=== PATIENT | female | born 1960 | race Caucasian/White ===

== ENCOUNTER 2024-03-30 13:37 | Outpatient (AMB) | payer MEDICAID, SELFPAY ==
[2024-03-30 14:13] VITALS: BP 111/75; PULSE 84; RESP 18; TEMP 36.6; O2SAT 95; BMI 38.7
--- NOTE | 2024-03-30 14:13 | PD.ORTHCLVIS ---
Vital signs 03/30/24 14:13 Height 1.75 m Height Method Stated Weight 118.529 kg Weight Measurement Method Standing Scale BMI 38.7 BP 111/75 Blood Pressure Source Automatic Cuff Blood Pressure Location Right Upper Arm Position Sitting Respiration 18 Pulse 84 Pulse Source Monitor Temp 98 F Temp Source Temporal Artery Scan Pulse Oximetry (%) 95 Oxygen Delivery Method Room Air Med/Allergies Allergies & Medications Allergies BEES Allergy (Uncoded 03/30/24 14:14) Medication Reconciliation meloxicam 7.5 mg tablet 7.5 mg PO QDAY #45 tabs 12/06/23 [Rx Confirmed 03/30/24] prednisone 20 mg tablet 20 mg PO QDAY 03/30/24 [History Confirmed 03/30/24] Subjective Visit Visit for: follow up visit, hip and injections Immunization / Flu Flu Vaccine in the Last 12 Months: Yes Flu Vaccine Exclusion Criteria: Already Received History of Present Illness Chief complaint: REQ HIP INJECTION Patient is a 62-year-old female with a right total hip replacement. She is doing well. She reports that her right hip is perfect. She reports that she has significant left hip and groin pain. ThIs just started recently. SHe would like a left hip injection. Personal History Occupation: DISABLED Hobbies: NA Red flag PMH: none Pain Pain level (0-10): 8 Pain duration: ALL DAY Pain location: groin and outside (lateral) Pain quality: sharp Pain timing: increases with activity Associated signs & symptoms: stiffness Ambulatory data Ambulatory device: none Walking distance (blocks): 10 Treatments Number of previous injections: 0 Improvement with previous injections: Yes Number of Physical Therapy sessions: 0 Improvement with PT: No Improvement with NSAIDS: n/a Review of Systems Review of Systems: All systems negative unless otherwise noted in HPI. Exam Exam Patient is in no acute distress and is cooperative with the examination today. Patient has a normal mood and affect. Breathing is nonlabored. In no respiratory distress. Bilateral extremities were evaluated and demonstrates sensation intact to light touch. Palpable pedal pulses are present. No significant edema is present. Right hip incisions clean dry intact. She is no pain with logroll Right hip x-rays are from [facility]. This demonstrates total hip replacement good alignment position. Patient has moderate left hip arthritis as well. There is significant joint space narrowing and osteophytes Assessment and Plan Problem List (1) Status post total hip replacement, right: Status: Acute Plan: Patient is a pleasant 62-year-old female with a right total hip replacement anterolateral approach 12 months ago. She is doing well. She reports the pain is pretty much nonexistent and she is very happy with her progress She now has significant left hip pain. We discussed anti-inflammatories and injections. I will give her prescription for meloxicam. We Also have given her an order for a left hip cortisone injection. She can try PT as well. Office Procedures GNS Level of Care Nursing/Assessment Patient Status: Established Patient Nursing Assessment/Reassesment: Medication Reconciliation, Update PMH in EMR and Vital Signs Coordination of Care: Complex Care and Chronic Disease 1-5, Education Complex Pt/Fam, Consent,records obtained, informed consent, Results/Orders obtained and Staff clarify orders Established Patient Charge Established Patient Point Assignment: 95 Surgical Proc/IM SQ injection Major Surgical Procedure: Yes (HIP INJECTION ) Past Medical History Past Medical History Have you ever been diagnosed with any of the following: Cardiology Problems Hypertension: Yes Respiratory Problems Smoking: No Smoking Exposure: No Surgical History Total Hip Replacement: Yes
== END 2024-03-30 14:46 | disposition home or self-care (01) ==
PROVIDERS: Supervising Provider Orthopaedic Surgery Adult Reconstructive Orthopaedic Surgery; Visit Provider Orthopaedic Surgery Adult Reconstructive Orthopaedic Surgery
DX: Z96.641 Presence of right artificial hip joint (principal); M25.552 Pain in left hip; I10 Essential (primary) hypertension
CPT/HCPCS: 99213; G0463

== ENCOUNTER → 2024-04-17 | Outpatient (CLI) | payer MEDICAID, SELFPAY ==
--- NOTE | 2024-04-17 14:00 | XR_ITS ---
Examination: Steroid injection left hip joint with imaging guidance Fluoroscopy AP left hip single view. Exam date and time: April 17, 2024 1352 hours INDICATIONS: Left hip joint osteoarthritis left hip pain months Informed consent provided. Technique: A timeout was completed verifying correct patient, procedure, site, positioning. The patient was placed in supine position appropriate for the steroid injection The patient's site was prepped and draped in sterile fashion 5 cc 1% lidocaine administered locally for anesthesia. Sterile drape applied, maximum barrier sterile technique. Utilizing fluoroscopic guidance, 23-gauge needle placed in the left hip joint 1 cc triamcinolone in 5 cc 0.25% Marcaine introduced into the left hip joint The patient was in satisfactory and stable condition on completion of the procedure Attending radiologist was present for the entire procedure Estimated blood loss 0 cc. Impression: Successful steroid injection left hip joint with imaging guidance AP left hip single view Fluoroscopy 0.3 minute radiation dose 3.25 milligray 1 spot fluoroscopic film .
== END | disposition home or self-care (01) ==
LOC: SIRX 04-19 08:43
PROVIDERS: PCP Orthopaedic Surgery Adult Reconstructive Orthopaedic Surgery; Referring Provider Orthopaedic Surgery Adult Reconstructive Orthopaedic Surgery; Visit Provider Orthopaedic Surgery Adult Reconstructive Orthopaedic Surgery
DX: M16.12 Unilateral primary osteoarthritis, left hip (principal)
CPT/HCPCS: 20610; 77002

== ENCOUNTER 2024-09-25 12:56 | Outpatient (AMB) | payer MEDICAID, SELFPAY ==
[2024-09-25 13:12] VITALS: BP 120/81; PULSE 96; RESP 18; TEMP 35.5; O2SAT 95; BMI 36.8
--- NOTE | 2024-09-25 13:12 | ORTHONT_ITS ---
Vital signs 09/25/24 13:12 Height 1.75 m Height Method Stated Weight 112.661 kg Weight Measurement Method Standing Scale BMI 36.8 BP 120/81 Blood Pressure Source Automatic Cuff Blood Pressure Location Right Upper Arm Position Sitting Respiration 18 Pulse 96 Pulse Source Monitor Temp 96 F L Temp Source Temporal Artery Scan Pulse Oximetry (%) 95 Oxygen Delivery Method Room Air Med/Allergies Allergies & Medications Allergies BEES Allergy (Uncoded 09/25/24 13:17) Medication Reconciliation meloxicam 7.5 mg tablet 7.5 mg PO QDAY #45 tabs 12/06/23 [Rx Confirmed 09/25/24] prednisone 20 mg tablet 20 mg PO QDAY 03/30/24 [History Confirmed 09/25/24] Exam Exam Patient is in no acute distress and is cooperative with the examination today. Patient has a normal mood and affect. Breathing is nonlabored. In no respiratory distress. Bilateral extremities were evaluated and demonstrates sensation intact to light touch. Palpable pedal pulses are present. No significant edema is present. Right hip incisions clean dry intact. She is no pain with logroll Right hip x-rays are from [facility]. This demonstrates total hip replacement good alignment position. Patient has significant left hip arthritis as well. There is significant joint space narrowing and osteophytes Assessment and Plan Problem List (1) Status post total hip replacement, right: Status: Acute Plan: Patient is a pleasant 62-year-old female with a right total hip replacement anterolateral approach 24 months ago. She is doing well. She reports the pain is pretty much nonexistent and she is very happy with her progress She now has significant left hip pain. We discussed anti-inflammatories and injections. She has failed conservative treatment including injections, anti-inflammatories, and physical therapy. She would like to proceed with a total hip replacement on the left. I would like to get medical clearance. Office Procedures GNS Level of Care Nursing/Assessment Patient Status: Established Patient Nursing Assessment/Reassesment: Medication Reconciliation, Update PMH in EMR and Vital Signs Coordination of Care: Complex Care and Chronic Disease 1-5, Education Complex Pt/Fam, Consent,records obtained, informed consent, 2-3 Insurance Autorizations needed and Staff clarify orders Established Patient Charge Established Patient Point Assignment: 110 Established Patient Point Charge: EP Level 3 (80-115) [place] Intake Visit Data Collection New Patient or Established: Established Patient (seen at [facility] within 3 years) Reason for Visit:: LEFT HIP PAIN Seen by Clinical Staff ONLY (RN/MA): No Verbal consent obtained for Telemed visit?: No General Machinist Required: No PCP or OBGYN visit in last 3 months: Yes Hx Now: No Do You Feel Safe at Home: Yes Authorities Contacted: N/A Questionairres Past Medical History Past Medical History Have you ever been diagnosed with any of the following: Cardiology Problems Hypertension: Yes Respiratory Problems Smoking: No Smoking Exposure: No Surgical History Total Hip Replacement: Yes Subjective Visit Visit for: follow up visit and hip Immunization / Flu Flu Vaccine in the Last 12 Months: No Flu Vaccine Exclusion Criteria: No Exclusion Criteria History of Present Illness Chief complaint: Left hip pain Lety is a pleasant 64-year-old female with left hip pain. She is status post right total hip replacement. She reports the pain has increased. She we have now tried 2 injections on the left for her severe arthritis as well as anti- inflammatories and formal physical therapy. At this point in time, she reports the pain is affecting her quality life and she would like to pursue surgery Personal History Red flag PMH: BMI BMI Counceling provided: Yes Pain Pain level (0-10): 5 Pain location: groin Pain quality: sharp, dull and aching Pain timing: night and increases with activity Ambulatory data Ambulatory device: cane Treatments Improvement with previous injections: No Improvement with PT: No Improvement with NSAIDS: no Review of Systems Review of Systems: All systems negative unless otherwise noted in HPI.
--- NOTE | 2024-09-25 13:17 | XR_ITS ---
Examination: Bilateral hips, AP pelvis, 5 views Technique: AP, lateral views both hips, AP pelvis, 5 views Exam date and time: September 25, 2024 1341 hours INDICATIONS: Hip pain months FINDINGS: Significant osteopenia Total right hip arthroplasty with satisfactory alignment Advanced left hip osteoarthritis, severe narrowing hip joint Bones of the pelvis intact IMPRESSION: Severe left hip osteoarthritis
== END 2024-09-25 13:22 | disposition home or self-care (01) ==
LOC: HODSRG 12:56
PROVIDERS: Supervising Provider Orthopaedic Surgery Adult Reconstructive Orthopaedic Surgery; Visit Provider Orthopaedic Surgery Adult Reconstructive Orthopaedic Surgery
DX: Z96.641 Presence of right artificial hip joint (principal); M25.552 Pain in left hip; M16.12 Unilateral primary osteoarthritis, left hip; I10 Essential (primary) hypertension
CPT/HCPCS: 73522; 99213; G0463

== ENCOUNTER 2024-11-22 12:55 | Outpatient (AMB) | payer MEDICAID, SELFPAY ==
--- NOTE | 2024-11-22 13:35 | ORTHONT_ITS ---
Vital signs 11/22/24 13:36 Height 1.75 m Height Method Stated Weight 109.316 kg Weight Measurement Method Standing Scale BMI 35.6 BP 98/64 Blood Pressure Source Automatic Cuff Blood Pressure Location Left Upper Arm Position Sitting Respiration 16 Pulse 84 Pulse Source Monitor Temp 97.9 F Temp Source Temporal Artery Scan Pulse Oximetry (%) 95 Oxygen Delivery Method Room Air Med/Allergies Allergies & Medications Allergies BEES Allergy (Uncoded 11/22/24 13:36) Medication Reconciliation meloxicam 7.5 mg tablet 7.5 mg PO QDAY #45 tabs 12/06/23 [Rx Confirmed 11/22/24] prednisone 20 mg tablet 20 mg PO QDAY 03/30/24 [History Confirmed 11/22/24] Exam Exam Patient is in no acute distress and is cooperative with the examination today. Patient has a normal mood and affect. Breathing is nonlabored. In no respiratory distress. Bilateral extremities were evaluated and demonstrates sensation intact to light touch. Palpable pedal pulses are present. No significant edema is present. Right hip incisions clean dry intact. She is no pain with logroll Right hip x-rays are from [facility]. This demonstrates total hip r eplacement good alignment position. Patient has significant left hip arthritis as well. There is significant joint space narrowing and osteophytes Assessment and Plan Problem List (1) Status post total hip replacement, right: Status: Acute Plan: Patient is a pleasant 62-year-old female with a right total hip replacement anterolateral approach 24 months ago. She is doing well. She reports the pain is pretty much nonexistent and she is very happy with her progress She now has significant left hip pain. We discussed anti-inflammatories and injections. She has failed conservative treatment including injections, anti-inflammatories, and physical therapy. She would like to proceed with a total hip replacement on the left. The nature and purpose of the total hip replacement, alternative method(s) of treatment, the material risks involved, and the possibility of complications were fully explained to the patient. The patient does NOT have any of the following contraindications to BILL: - Active infection of the hip joint, OR - Active systemic bacteremia, OR - Active skin infection or open wound at surgical site, OR - Neuropathic arthritis, OR - Severe, rapidly progressive neurological disease, OR - Severe medical condition that makes risks of the surgery outweigh the potential benefit The patient was told the most common risks and complications associated with a total hip replacement include, but are not limited to: blood clots in the leg, fatal pulmonary embolism, dislocation of the prosthesis, intraoperative and postoperative fractures of the femur or acetabulum, infection, failure of the prosthesis or grafting materials, complications from anesthesia, reactions to blood transfusions, postoperative leg length inequality, instability of the hip replacement, nerve damage or injury, vascular injury, delayed wound healing, infection, other injury or even . In addition, there are risks associated with anesthesia given during this operation. Also, the patient was told that after undergoing a total hip replacement there may still be persistent pain or disability. The patient was informed that the success of this operation in part depends upon the mechanical devices which are going to be implanted and that these devices can fail or malfunction, and may need to be repaired or replaced and there are no guarantees as to the longevity of this device or its parts and that it or its parts could fail prematurely. The patient was also notified that during the course of surgery, there may be a need to use bone graft from donors, and that any bone graft used will be carefully screened for communicable diseases, including AIDS, hepatitis, Chris-Creutzfeldt, or other diseases, but despite the screening procedures, there is a small chance that they could contract one of these diseases. Finally, the patient was asked to follow completely and fully with all advice and recommended treatments, and that recovery and ultimate outcome are affected by their compliance with recommended treatment. We discussed the risks, benefits and treatment alternatives, and the patient is interested in proceeding with surgery. We will try to set this up as expeditiously as possible. Office Procedures GNS Level of Care Nursing/Assessment Patient Status: Established Patient Nursing Assessment/Reassesment: Medication Reconciliation, Update PMH in EMR and Vital Signs Coordination of Care: Complex Care and Chronic Disease 1-5, Education Complex Pt/Fam, Consent,records obtained, informed consent, Results/Orders obtained and Staff clarify orders Established Patient Charge Established Patient Point Assignment: 95 Established Patient Point Charge: Level 3 (80-115) [place] Intake Visit Data Collection New Patient or Established: Established Patient (seen at [facility] within 3 years) Reason for Visit:: LEFT HIP PAIN Seen by Clinical Staff ONLY (RN/MA): No Verbal consent obtained for Telemed visit?: No Blue Line Trimmer Required: No PCP or OBGYN visit in last 3 months: Yes Hx Now: No Do You Feel Safe at Home: Yes Authorities Contacted: N/A Questionairres Past Medical History Past Medical History Have you ever been diagnosed with any of the following: Cardiology Problems Hypertension: Yes Respiratory Problems Smoking: No Smoking Exposure: No Surgical History Total Hip Replacement: Yes Subjective Visit Visit for: follow up visit and hip Immunization / Flu Flu Vaccine in the Last 12 Months: No Flu Vaccine Exclusion Criteria: No Exclusion Criteria History of Present Illness Chief complaint: Left hip pain Lety is a pleasant 64-year-old female with left hip pain. She is status post right total hip replacement. She reports the pain has increased. She we have now tried 2 injections on the left for her severe arthritis as well as anti- inflammatories and formal physical therapy. At this point in time, she reports the pain is affecting her quality life and she would like to pursue surgery. She reports the left hip pain is miserable Personal History Red flag PMH: BMI BMI Counceling provided: Yes Pain Pain level (0-10): 5 Pain location: groin Pain quality: sharp, dull and aching Pain timing: night and increases with activity Ambulatory data Ambulatory device: cane Treatments Improvement with previous injections: No Improvement with PT: No Improvement with NSAIDS: no Review of Systems Review of Systems: All systems negative unless otherwise noted in HPI.
[2024-11-22 13:36] VITALS: BP 98/64; PULSE 84; RESP 16; TEMP 36.6; O2SAT 95; BMI 35.6
== END 2024-11-22 14:01 | disposition home or self-care (01) ==
LOC: HODSRG 12:55
PROVIDERS: Supervising Provider Orthopaedic Surgery Adult Reconstructive Orthopaedic Surgery; Visit Provider Orthopaedic Surgery Adult Reconstructive Orthopaedic Surgery
DX: M25.552 Pain in left hip (principal); Z96.641 Presence of right artificial hip joint; I10 Essential (primary) hypertension
CPT/HCPCS: 99213; G0463

== ENCOUNTER → 2024-12-10 | Outpatient (CLI) | payer OTHER, SELFPAY ==
--- NOTE | 2024-12-10 10:30 | XR_ITS ---
Examination: CT bilateral lower extremities, without contrast. 2-D sagittal reconstructions. 2-D coronal reconstructions. 3-D reconstructions. Date and time of exam:December 10, 2024 1038 hours INDICATIONS: Bilateral hip pain 2 years CTDI: vol (mGy):24.9 DLP: (mGycm):1370 Technique: Multiple 1.25 mm axial sections of the bilateral lower extremities without intravenous contrast have been obtained. 2-D sagittal and coronal reconstructions have been obtained. 3-D reconstructions have been obtained. Low dose protocols were performed. One or more of the following dose reduction techniques were used; automated exposure control, adjustment of the mA and/or KV according to patient size, use of iterative reconstruction technique. 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
== END | disposition home or self-care (01) ==
LOC: SCAT 12-12 08:25
PROVIDERS: Referring Provider Orthopaedic Surgery Adult Reconstructive Orthopaedic Surgery; Visit Provider Orthopaedic Surgery Adult Reconstructive Orthopaedic Surgery
DX: M16.12 Unilateral primary osteoarthritis, left hip (principal); M25.852 Other specified joint disorders, left hip
CPT/HCPCS: 72192; 73700

== ENCOUNTER 2024-12-14 05:45 | Day surgery (SDC) | payer OTHER, SELFPAY ==
[2024-12-10 09:28] VITALS: BMI 36.3
[2024-12-10 10:13] LABS: Basophils # (Auto) 0.0 Thou/mm3 (0.0-0.2); Basophils % (Auto) 1 % (0-2.5); Eosinophils # (Auto) 0.2 Thou/mm3 (0.0-0.5); Eosinophils % (Auto) 3 % (0-10); Hematocrit 42.1 % (36.0-46.0); Hemoglobin 14.3 g/dL (12.0-16.0); Immature Granulocytes Auto 0.02 Thou/mm3 (0.00-0.00); Lymphocytes # (Auto) 1.4 Thou/mm3 (1.0-4.8); Lymphocytes % (Auto) 24 % (10-50); Mean Corpuscular HGB Conc 34.0 g/dl (31.0-37.0); Mean Corpuscular Hemoglobin 30.0 pg (25.0-35.0); Mean Corpuscular Volume 88 fL (80-100); Monocytes # (Auto) 0.5 Thou/mm3 (0.0-0.8); Monocytes % (Auto) 7 % (0-12); Neutrophils # (Auto) 4.0 Thou/mm3 (1.8-7.7); Neutrophils % (Auto) 65 % (37-80); Nucleated Red Blood Cell # 0.00 Thou/mm3 (0.00-0.00); Nucleated Red Blood Cell % 0 /100 WBC (0); Platelet Count 423 Thou/mm3 (140-440); RDW Standard Deviation 41.1 fL (36.4-46.3); Red Blood Count 4.76 Miln/mm3 (4.00-5.20); White Blood Count 6.1 Thou/mm3 (3.6-11.0)
[2024-12-10 10:21] LABS: INR 1.0 (0.9-1.3); Partial Thromboplastin Time 27.5 Seconds (22.0-36.0); Prothrombin Time 10.8 Seconds (9.0-12.2)
[2024-12-10 10:29] LABS: Alanine Aminotransferase 10 U/L (10-49); Albumin, Serum 4.5 gm/dL (3.4-4.8); Albumin/Globulin Ratio 1.9 (1.2-2.2); Alkaline Phosphatase 80 U/L (46-116); Anion Gap 9 (7-16); Aspartate Amino Transferase 17 U/L (0-34); BUN/Creatinine Ratio 11 Ratio (12-20); Bilirubin,Total 0.6 mg/dL (0.3-1.2); Blood Urea Nitrogen 11 mg/dL (9-23); Calcium 9.9 mg/dL (8.3-10.6); Calcium (Corrected) 9.9 mg/dL (8.5-10.1); Carbon Dioxide 28.9 mMol/L (20.0-31.0); Chloride 98 mMol/L (98-107); Creatinine (Component) 1.0 mg/dL (0.6-1.3); Estimated Creatinine Clearance 73.4 mL/min (>60); Globulin 2.4 gm/dL (2.3-3.5); Glucose 95 mg/dL (74-106); Osmolality,Calculated 271 (275-295); Potassium 4.4 mMol/L (3.4-5.1); Sodium 136 mMol/L (136-145); Total Protein 6.9 gm/dL (5.7-8.2); eGFR > 60 See Note
--- NOTE | 2024-12-13 15:51 | SUR.PREOP ---
Pt notified to come in tomorrow at 0545 for surgery.
[2024-12-14] VITALS (16 sets, daily range): BP systolic 78–122; BP diastolic 53–77; PULSE 68–88; RESP 13–20; TEMP 36.2–36.9; O2SAT 95–99; BMI 36.1
[2024-12-14] MEDS: ACETAMINOPHEN 325 MG TABLET 650 MG PO (06:27)
[2024-12-14] MEDS: MELOXICAM 7.5 MG TABLET PO (06:27)
[2024-12-14] MEDS: RINGERS LACTATED 1000 ML 1,000 ML 20 ML IV (06:28)
--- NOTE | 2024-12-14 07:22 | SUR.PREOP ---
Patient expressed gratitude for prayer before their procedure.
--- NOTE | 2024-12-14 08:00 | XR_ITS ---
Examination: Left hip single view TECHNIQUE: AP left hip single view Date and time: December 24, 2024 0936 hours INDICATIONS: Status post total left hip arthroplasty FINDINGS: Total left hip arthroplasty. Satisfactory alignment IMPRESSION: Total left hip arthroplasty with satisfactory alignment
--- NOTE | 2024-12-14 10:06 | PD.SUROPNT ---
Date of Procedure 12/14/24 Pre Op Diagnosis left hip osteoarthritis Post Op Diagnosis left hip osteoarthritis Procedure left total hip replacement tae Findings full thickness cartilage loss and osteophytes Procedure Description Indications: The patient is a 64y.o. year-old with a longstanding history of left hip pain. After considering the patient's condition and the impact of their hip injury on the patient's quality of life and risks of nonoperative treatment, total hip replacement was offered as a reasonable option. Prior to the surgery I discussed the nature of the hip replacement surgery including alternatives to surgery and the purpose of, and indications for proceeding with surgery. I discussed that this surgery is a shared decision between the patient and the surgeon. Risks and benefits and alternatives of the procedure have been explained to the patient and their family. Anesthesia complications and risks include but are not limited to stroke, heart attack, and . The surgical risks include but are not limited to infection, instability/dislocation, bleeding, nerve and blood vessel injury, deep vein thrombosis, pulmonary embolus, stiffness, pain, scar, need for reoperation, leg length discrepancy, thigh numbness, weakness, and mechanical failure of the implant including loosening, metal complications, metal allergy, wear or breakage. I discussed the expected recovery from surgery and the importance of compliance with all our pre and post-operative recommendations in order to maximize the recovery. The patient/family understands the risks of loss of life, loss of limb and, loss of function and wishes to proceed. They understand they are at increased risk for infection given their history of smoking. A signed and witnessed consent was obtained and placed in the chart. Patient Positioning: The patient was placed in the lateral decubitus position on a standard table using a pegboard. An axillary role was placed. All extremities were padded to ensure adequate protection. A rebolledo catheter was aseptically inserted. Time Out: A timeout was performed prior to the procedure which verified the correct patient, positioning, operation to be performed, operative site, antibiotics, allergies, imaging, and any other concerns. All parties were in agreement. Procedure in detail: The operative site was cleaned and draped in the usual sterile fashion. A final timeout was performed with all parties in agreement. We first placed percutaneous reno pins above the ASIS and attached a hip array. A modified anterolateral approach to the hip was utilized. A 16cm skin incision was made centered over the greater trochanter in line with the femur. This was taken down through skin and subcutaneous tissue using a 10 blade. Bleeding was controlled using electrocautery. The fascia was identified and split in line with the femur. The charnley retractor was then placed. The abductor insertion was identified and a split made in the anterior 1/3 of the tendon proximally. Retractors were placed and the gluteus minimus was visualized. A capsulotomy was made down to the femoral neck anterior to the minimus. A split was then made in the anterior 1/3 of the vastus lateralis. A retractor was then placed anterior to the femoral shaft, the tendon was tagged with #1 ethibond sutures and a U-shaped split was made in the anterior 1/3 of the abductor tendon being careful to leave enough tendon to re-attach. The hip was then gently externally rotated as the anterior tissues were taken down with the tendon and capsule as one sleeve. Once the anterior tissue had been release off of bone a bone hook was placed and the hip was gently dislocated. Retractors were placed around the femoral neck and the femoral neck osteotomy was then made to freshen up the cut. The femoral head removed. The leg was then placed in extension and retractors were placed anterior and posterior to the acetabulum. We first mapped the acetabulum and pelvis with a probe. The inferior capsule was release to improved visualization and the labrum and osteophytes around the acetabulum were removed. The acetabulum was then reamed to bleeding bone with adequate wall coverage and the cup was impacted into place using the [employer] robot. Screws were then placed followed by the liner which was impacted and confirmed to be seated. We then turned our attention to the femur. The leg was brought into external rotation and the femur was exposed. A canal finder was used followed by a box osteotomy and the femur was broached sequentially. The trial stem was then left in and the hip was trialed using various neck offsets and head sizes until the appropriate size was found based on leg length, stability. Once we were satisfied with the construct a cross-table AP pelvis radiograph was obtained to confirm appropriate positioning and sizing. The hip was then dislocated and the trials were then removed and the final stem impacted into placed. The hip was then again trialed and the appropriate head size identified. The garcia taper was then cleaned and dried and the final head impact into place and tested. The acetabulum was irrigated and confirmed to be free of debris. The hip was then reduced and taken through range of motion. The hip was stable in abduction and external rotation, adduction and external rotation, flexion past 90 degrees and internal rotation past 20 degrees. It did not sublux throughout range of motion and no impingement was detected. Leg lengths were appropriately restored based on preoperative leg lengths and intraoperative testing. Lengths and offset were further verified with the robot. We then removed the pins and the greater troch marker. The hip was then copiously irrigated with dilute betadine followed by normal saline. The hip was then injected with the cocktail per protocol The hip was the closed in layers. The abductor tendon was closed with #1 ethibond. The fascia was closed with 0 Vicryl followed by an 0 V-lock. . The deep layer was closed with 0-Vicryl and the subcutaneous layer by a 2-0 Vicryl. The subdermal layer was closed with a 3-0 monocryl. The skin was then cleaned and dried and steri-strips placed followed by a sterile dressing. The drapes were then taken down and the patient was placed supine. Leg lengths were confirmed to be appropriate and the patient's lower extremities were warm and well perfused with brisk capillary refill and palpable pulses. The patient was then awoken, transferred to the [facility] and taken to the PACU in stable condition. They tolerated the procedure well. The patient's family/caregiviers were made aware of their condition. Postoperative plan Activity: WBAT, no hip precautions , no active hip abduction DVT Prophylaxis: aspirin 81mg BID Antibiotics: Standard postoperative antibiotics x 24 hours Implants: Juma 52 cup, 5 standard insignia, 1 screws, standard liner, 40-2.5 head Anesthesia spinal Implants juma Pathology / specimen None Pathology comment: none Estimated Blood Loss 150 Condition Stable Disposition same day Surgeon Rajesh Alfonso MD Surgical Staff Operation Date: 12/14/24 07:30 Case Staff Anesthesiologist: Dariel Mccabe RN First Assistant: Denise Gilliam
--- NOTE | 2024-12-14 10:16 | SUR.PHASEI ---
pt received from OR in recovery bay 5. pt awake and alert, breathing unlabored on 8l oxymask. v/s stable. pt dressing to left hip cdi. report received from Gena Beth and Dr. Mccabe.
--- NOTE | 2024-12-14 10:48 | XR_ITS ---
Examination:Left hip AP, lateral, AP pelvis 3 views Technique: Hip AP lateral, AP pelvis, 3 views Exam date and time:December 24, 2024 1048 hours INDICATIONS: Postop left hip arthroplasty FINDINGS: Total left hip arthroplasty. Satisfactory alignment. Total right hip arthroplasty with satisfactory alignment. Bones of the pelvis intact IMPRESSION: Total left hip arthroplasty with satisfactory alignment.
--- NOTE | 2024-12-14 12:30 | SUR.PHASEII ---
pt awake, alert, able to follow commands, breathing unlabored, dressing to left hip clean, dry, and intact, report from Danny BOLTON
--- NOTE | 2024-12-14 13:02 | SUR.PHASEII ---
Report to Danny BOLTON
--- NOTE | 2024-12-14 14:00 | SUR.PHASEII ---
pt awake and alert, breathing unlabored on room air. v/s stable. pt dressing to left hip cdi. pt cleared by physical therapist Argenis. pt able to ambulate to bathroom using walker. d/c instructions given with sister Gail in room, all questions answered. pt d/c via wheelchair with all belongings.
== END 2024-12-14 14:00 | disposition home or self-care (01) ==
PROVIDERS: Anesthesiology; Referring Provider Orthopaedic Surgery Adult Reconstructive Orthopaedic Surgery; Visit Provider Orthopaedic Surgery Adult Reconstructive Orthopaedic Surgery
PROC: (CPT 27130; principal; 2024-12-14 07:30)
DX: M16.12 Unilateral primary osteoarthritis, left hip (principal); M25.752 Osteophyte, left hip
CPT/HCPCS: 27130; 36415; 73501; 73502; 80053; 85025; 85610; 85730; 97162; A4217; A4649; C1713; C1776; J0690; J1885; J2250; J2405; J2704; J3010; J3490; J7030; J7120; J7999; A4648; A9270

== ENCOUNTER 2024-12-28 09:27 | Outpatient (AMB) | payer OTHER, SELFPAY ==
--- NOTE | 2024-12-28 09:51 | ORTHONT_ITS ---
Vital signs 12/28/24 09:52 Height 1.73 m Height Method Stated Weight 110.024 kg Weight Measurement Method Standing Scale BMI 36.7 BP 118/78 Blood Pressure Source Automatic Cuff Blood Pressure Location Left Upper Arm Position Sitting Respiration 18 Pulse 98 Pulse Source Monitor Temp 96.6 F L Temp Source Temporal Artery Scan Pulse Oximetry (%) 98 Oxygen Delivery Method Room Air Med/Allergies Allergies & Medications Allergies tetracycline Allergy (Verified 12/28/24 09:52) Rash BEES Allergy (Uncoded 12/28/24 09:52) Medication Reconciliation albuterol sulfate 90 mcg/actuation aerosol inhaler 1 puff inhalation Q4H PRN shortness of breath or wheezing 12/10/24 [History Confirmed 12/28/24] budesonide-formoterol HFA 160 mcg-4.5 mcg/actuation aerosol inhaler (Symbicort) 1 inh inhalation BID 12/10/24 [History Confirmed 12/28/24] cetirizine 10 mg tablet 10 mg PO DAILY 12/10/24 [History Confirmed 12/28/24] ergocalciferol (vitamin D2) 1,250 mcg (50,000 unit) capsule 1,250 mcg PO QMONTH 12/10/24 [History Confirmed 12/28/24] fluoxetine 40 mg capsule 40 mg PO DAILY 12/10/24 [History Confirmed 12/28/24] fluticasone propionate 50 mcg/actuation nasal spray,suspension 1 spray intranasal Q12H PRN nasal congestion 12/10/24 [History Confirmed 12/28/24] furosemide 20 mg tablet 20 mg PO DAILY 12/10/24 [History Confirmed 12/28/24] gabapentin 300 mg capsule 300 mg PO BID 12/10/24 [History Confirmed 12/28/24] ipratropium 0.5 mg-albuterol 3 mg (2.5 mg base)/3 mL nebulization soln 3 ml inhalation Q4H PRN wheezing 12/10/24 [History Confirmed 12/28/24] lisinopril 5 mg tablet 5 mg PO DAILY 12/10/24 [History Confirmed 12/28/24] meloxicam 7.5 mg tablet 7.5 mg PO QDAY PRN muscle spasm 12/10/24 [History Confirmed 12/28/24] montelukast 10 mg tablet 10 mg PO HS 12/10/24 [History Confirmed 12/28/24] omeprazole 20 mg capsule,delayed release 20 mg PO DAILY 12/10/24 [History Confirmed 12/28/24] semaglutide (weight loss) 1 mg/0.5 mL subcutaneous pen injector (Wegovy) 1 mg subcut QWEEK 12/10/24 [History Confirmed 12/28/24] tezepelumab-ekko 210 mg/1.91 mL (110 mg/mL) subcutaneous pen injector (Tezspire) 210 mg subcut QMONTH 12/10/24 [History Confirmed 12/28/24] acetaminophen 500 mg tablet (Acetaminophen Extra Strength) 1,000 mg (2 x 500 mg) PO Q6H PRN pain #90 tabs 12/11/24 [Rx Confirmed 12/28/24] aspirin 81 mg tablet,delayed release 81 mg PO BID #60 tabs 12/11/24 [Rx Confirmed 12/28/24] doxycycline hyclate 100 mg tablet 100 mg PO BID #14 tabs 12/11/24 [Rx Confirmed 12/28/24] gabapentin 300 mg capsule 300 mg PO .qhs #30 caps 12/11/24 [Rx Confirmed 12/28/24] oxycodone 5 mg tablet 5 mg PO Q6H PRN pain #28 tabs 12/11/24 [Rx Confirmed 12/28/24] sennosides 8.6 mg-docusate sodium 50 mg tablet (Senna-S) 1 tab-cap PO QDAY #30 tabs 12/11/24 [Rx Confirmed 12/28/24] Exam Exam Patient is in no acute distress and is cooperative with the examination today. Patient has a normal mood and affect. Breathing is nonlabored. In no respiratory distress. Bilateral extremities were evaluated and demonstrates sensation intact to light touch. Palpable pedal pulses are present. No significant edema is present. Right hip incisions clean dry intact. She is no pain with logroll Left hip incision is also clean dry intact Assessment and Plan Problem List (1) Status post total hip replacement, right: Status: Acute Plan: Patient is a pleasant 62-year-old female with a right total hip replacement anterolateral approach 24 months ago. She is doing well. She is now status post left total hip replacement and is very happy. We will have her do physical therapy Office Procedures GNS Level of Care Nursing/Assessment Patient Status: Established Patient Nursing Assessment/Reassesment: Medication Reconciliation, Update PMH in EMR and Vital Signs Coordination of Care: Complex Care and Chronic Disease 1-5, Education Complex Pt/Fam, Consent,records obtained, informed consent, Results/Orders obtained and Staff clarify orders Established Patient Charge Established Patient Point Assignment: 95 Established Patient Point Charge: EP Level 3 (80-115) MA Intake Visit Data Collection New Patient or Established: Established Patient (seen at [facility] within 3 years) Reason for Visit:: 2 WEEK L BILL FU Seen by Clinical Staff ONLY (RN/MA): No Verbal consent obtained for Telemed visit?: No [employer] Required: No PCP or OBGYN visit in last 3 months: Yes Hx Now: No Do You Feel Safe at Home: Yes Authorities Contacted: N/A Questionairres Past Medical History Past Medical History Have you ever been diagnosed with any of the following: Neurological Problems Seizures: No Cardiology Problems Congestive Heart Failure: No Hypertension: Yes Respiratory Problems Chronic Obstructive Pulmonary Disease (COPD): No Asthma: Yes Smoking: No Smoking Exposure: No Stomache/Intestinal Problems Hepatitis: No Obesity: Yes Genital/Urinary Problems Renal Disease: No Reproductive Problems Previous Pregnancies: Yes (3) Musculoskeletal Problems Arthritis: Yes Degenerative Disk Disease: Yes Endocrine Problems Diabetes Mellitus Type 1: No Diabetes Mellitus Type 2: No Other Problems Hospitalization: Yes Shingles: No Blood Transfusions: No Anesthesia Reactions: Yes (wakes up earlier then expected) Chicken Pox: Yes Mumps: Yes Cancer: No Surgical History Total Hip Replacement: Yes Subjective Visit Visit for: follow up visit, post op #1 and hip Immunization / Flu Flu Vaccine in the Last 12 Months: No Flu Vaccine Exclusion Criteria: No Exclusion Criteria History of Present Illness Chief complaint: Left hip pain Lety is a pleasant 64-year-old female with left hip pain. She is status post right total hip replacement. She is now status post left total hip replacement and is very happy with her progress. Personal History Red flag PMH: BMI BMI Counceling provided: Yes Pain Pain level (0-10): 0 Pain location: groin Pain quality: sharp, dull and aching Pain timing: night and increases with activity Ambulatory data Ambulatory device: walker Treatments Improvement with previous injections: No Improvement with PT: No Improvement with NSAIDS: no Review of Systems Review of Systems: All systems negative unless otherwise noted in HPI.
[2024-12-28 09:52] VITALS: BP 118/78; PULSE 98; RESP 18; TEMP 35.9; O2SAT 98; BMI 36.7
== END 2024-12-28 10:10 | disposition home or self-care (01) ==
LOC: HODSRG 09:27
PROVIDERS: Supervising Provider Orthopaedic Surgery Adult Reconstructive Orthopaedic Surgery; Visit Provider Orthopaedic Surgery Adult Reconstructive Orthopaedic Surgery
DX: Z96.641 Presence of right artificial hip joint (principal); M25.552 Pain in left hip
CPT/HCPCS: 99213; G0463

== ENCOUNTER 2025-02-05 09:02 | Outpatient (AMB) | payer OTHER, SELFPAY ==
[2025-02-05 09:21] VITALS: BP 113/76; PULSE 90; RESP 20; TEMP 36.3; O2SAT 94; BMI 35.5
--- NOTE | 2025-02-05 09:21 | PD.ORTHCLVIS ---
Vital signs 02/05/25 09:21 Height 1.73 m Height Method Measured Weight 106.282 kg Weight Measurement Method Standing Scale BMI 35.5 BP 113/76 Blood Pressure Source Automatic Cuff Blood Pressure Location Left Upper Arm Position Sitting Respiration 20 Pulse 90 Pulse Source Monitor Temp 97.4 F Temp Source Temporal Artery Scan Pulse Oximetry (%) 94 L Oxygen Delivery Method Room Air Med/Allergies Allergies & Medications Allergies tetracycline Allergy (Verified 02/05/25 09:22) Rash BEES Allergy (Uncoded 02/05/25 09:22) Medication Reconciliation albuterol sulfate 90 mcg/actuation aerosol inhaler 1 puff inhalation Q4H PRN shortness of breath or wheezing 12/10/24 [History Confirmed 02/05/25] budesonide-formoterol HFA 160 mcg-4.5 mcg/actuation aerosol inhaler (Symbicort) 1 inh inhalation BID 12/10/24 [History Confirmed 02/05/25] cetirizine 10 mg tablet 10 mg PO DAILY 12/10/24 [History Confirmed 02/05/25] ergocalciferol (vitamin D2) 1,250 mcg (50,000 unit) capsule 1,250 mcg PO QMONTH 12/10/24 [History Confirmed 02/05/25] fluoxetine 40 mg capsule 40 mg PO DAILY 12/10/24 [History Confirmed 02/05/25] fluticasone propionate 50 mcg/actuation nasal spray,suspension 1 spray intranasal Q12H PRN nasal congestion 12/10/24 [History Confirmed 02/05/25] furosemide 20 mg tablet 20 mg PO DAILY 12/10/24 [History Confirmed 02/05/25] gabapentin 300 mg capsule 300 mg PO BID 12/10/24 [History Confirmed 02/05/25] ipratropium 0.5 mg-albuterol 3 mg (2.5 mg base)/3 mL nebulization soln 3 ml inhalation Q4H PRN wheezing 12/10/24 [History Confirmed 02/05/25] lisinopril 5 mg tablet 5 mg PO DAILY 12/10/24 [History Confirmed 02/05/25] meloxicam 7.5 mg tablet 7.5 mg PO QDAY PRN muscle spasm 12/10/24 [History Confirmed 02/05/25] montelukast 10 mg tablet 10 mg PO HS 12/10/24 [History Confirmed 02/05/25] omeprazole 20 mg capsule,delayed release 20 mg PO DAILY 12/10/24 [History Confirmed 02/05/25] semaglutide (weight loss) 1 mg/0.5 mL subcutaneous pen injector (Wegovy) 1 mg subcut QWEEK 12/10/24 [History Confirmed 02/05/25] tezepelumab-ekko 210 mg/1.91 mL (110 mg/mL) subcutaneous pen injector (Tezspire) 210 mg subcut QMONTH 12/10/24 [History Confirmed 02/05/25] acetaminophen 500 mg tablet (Acetaminophen Extra Strength) 1,000 mg (2 x 500 mg) PO Q6H PRN pain #90 tabs 12/11/24 [Rx Confirmed 02/05/25] aspirin 81 mg tablet,delayed release 81 mg PO BID #60 tabs 12/11/24 [Rx Confirmed 02/05/25] doxycycline hyclate 100 mg tablet 100 mg PO BID #14 tabs 12/11/24 [Rx Confirmed 02/05/25] gabapentin 300 mg capsule 300 mg PO .qhs #30 caps 12/11/24 [Rx Confirmed 02/05/25] oxycodone 5 mg tablet 5 mg PO Q6H PRN pain #28 tabs 12/11/24 [Rx Confirmed 02/05/25] sennosides 8.6 mg-docusate sodium 50 mg tablet (Senna-S) 1 tab-cap PO QDAY #30 tabs 12/11/24 [Rx Confirmed 02/05/25] Exam Exam Patient is in no acute distress and is cooperative with the examination today. Patient has a normal mood and affect. Breathing is nonlabored. In no respiratory distress. Bilateral extremities were evaluated and demonstrates sensation intact to light touch. Palpable pedal pulses are present. No significant edema is present. Right hip incisions clean dry intact. She is no pain with logroll Left hip incision is also clean dry intact Assessment and Plan Problem List (1) Status post total hip replacement, right: Status: Acute Plan: Patient is a pleasant 62-year-old female with a right total hip replacement anterolateral approach 24 months ago. She is doing well. She is now status post left total hip replacement and is very happy. She is doing well with physical therapy. we will see her back in 2 months routine follow-up Office Procedures GNS Level of Care Nursing/Assessment Patient Status: Established Patient Nursing Assessment/Reassesment: Medication Reconciliation, Update PMH in EMR and Vital Signs Coordination of Care: Complex Care and Chronic Disease 1-5, Education Complex Pt/Fam, Consent,records obtained, informed consent, Results/Orders obtained and Staff clarify orders Established Patient Charge Established Patient Point Assignment: 95 Established Patient Point Charge: EP Level 3 (80-115) MA Intake Visit Data Collection New Patient or Established: Established Patient (seen at [facility] within 3 years) Reason for Visit:: 4 WEEK POST OP LEFT BILL Seen by Clinical Staff ONLY (RN/MA): No Verbal consent obtained for Telemed visit?: No Hoof Trimmer Required: No PCP or OBGYN visit in last 3 months: Yes Hx Now: No Do You Feel Safe at Home: Yes Authorities Contacted: N/A Questionairres Past Medical History Past Medical History Have you ever been diagnosed with any of the following: Neurological Problems Seizures: No Cardiology Problems Congestive Heart Failure: No Hypertension: Yes Respiratory Problems Chronic Obstructive Pulmonary Disease (COPD): No Asthma: Yes Smoking: No Smoking Exposure: No Stomache/Intestinal Problems Hepatitis: No Obesity: Yes Genital/Urinary Problems Renal Disease: No Reproductive Problems Previous Pregnancies: Yes (3) Musculoskeletal Problems Arthritis: Yes Degenerative Disk Disease: Yes Endocrine Problems Diabetes Mellitus Type 1: No Diabetes Mellitus Type 2: No Other Problems Hospitalization: Yes Shingles: No Blood Transfusions: No Anesthesia Reactions: Yes (wakes up earlier then expected) Chicken Pox: Yes Mumps: Yes Cancer: No Surgical History Total Hip Replacement: Yes Subjective Visit Visit for: follow up visit and hip Immunization / Flu Flu Vaccine in the Last 12 Months: No Flu Vaccine Exclusion Criteria: No Exclusion Criteria History of Present Illness Chief complaint: 4 WEEK POST OP LEFT BILL Lety is a pleasant 64-year-old female with left hip pain. She is status post right total hip replacement. She is now status post left total hip replacement and is very happy with her progress. She reports her bilateral knees are starting to hurt her somewhat she has not had any x-rays of her knees. Personal History Red flag PMH: BMI BMI Counceling provided: Yes Pain Pain level (0-10): 0 Pain location: groin Pain quality: sharp, dull and aching Pain timing: night and increases with activity Ambulatory data Ambulatory device: cane [employer] Improvement with previous injections: No Improvement with PT: No Improvement with NSAIDS: no Review of Systems Review of Systems: All systems negative unless otherwise noted in HPI.
== END 2025-02-05 09:38 | disposition home or self-care (01) ==
LOC: HODSRG 09:02
PROVIDERS: Supervising Provider Orthopaedic Surgery Adult Reconstructive Orthopaedic Surgery; Visit Provider Orthopaedic Surgery Adult Reconstructive Orthopaedic Surgery
DX: Z96.642 Presence of left artificial hip joint (principal); M25.552 Pain in left hip; I10 Essential (primary) hypertension; E66.9 Obesity, unspecified; Z68.35 Body mass index [BMI] 35.0-35.9, adult
CPT/HCPCS: 99213; G0463

== ENCOUNTER 2025-04-02 12:52 | Outpatient (AMB) | payer OTHER, SELFPAY ==
[2025-04-02 13:15] VITALS: BP 106/75; PULSE 79; RESP 18; TEMP 36.6; O2SAT 93; BMI 35.2
--- NOTE | 2025-04-02 13:15 | PD.ORTHCLVIS ---
Vital signs 04/02/25 13:15 Height 1.73 m Height Method Stated Weight 105.29 kg Weight Measurement Method Standing Scale BMI 35.2 BP 106/75 Blood Pressure Source Automatic Cuff Blood Pressure Location Right Upper Arm Position Sitting Respiration 18 Pulse 79 Pulse Source Monitor Temp 97.8 F Temp Source Temporal Artery Scan Pulse Oximetry (%) 93 L Oxygen Delivery Method Room Air Med/Allergies Allergies & Medications Allergies tetracycline Allergy (Verified 04/02/25 13:16) Rash BEES Allergy (Uncoded 04/02/25 13:16) Medication Reconciliation albuterol sulfate 90 mcg/actuation aerosol inhaler 1 puff inhalation Q4H PRN shortness of breath or wheezing 12/10/24 [History Confirmed 04/02/25] budesonide-formoterol HFA 160 mcg-4.5 mcg/actuation aerosol inhaler (Symbicort) 1 inh inhalation BID 12/10/24 [History Confirmed 04/02/25] cetirizine 10 mg tablet 10 mg PO DAILY 12/10/24 [History Confirmed 04/02/25] ergocalciferol (vitamin D2) 1,250 mcg (50,000 unit) capsule 1,250 mcg PO QMONTH 12/10/24 [History Confirmed 04/02/25] fluoxetine 40 mg capsule 40 mg PO DAILY 12/10/24 [History Confirmed 04/02/25] fluticasone propionate 50 mcg/actuation nasal spray,suspension 1 spray intranasal Q12H PRN nasal congestion 12/10/24 [History Confirmed 04/02/25] furosemide 20 mg tablet 20 mg PO DAILY 12/10/24 [History Confirmed 04/02/25] gabapentin 300 mg capsule 300 mg PO BID 12/10/24 [History Confirmed 04/02/25] ipratropium 0.5 mg-albuterol 3 mg (2.5 mg base)/3 mL nebulization soln 3 ml inhalation Q4H PRN wheezing 12/10/24 [History Confirmed 04/02/25] lisinopril 5 mg tablet 5 mg PO DAILY 12/10/24 [History Confirmed 04/02/25] meloxicam 7.5 mg tablet 7.5 mg PO QDAY PRN muscle spasm 12/10/24 [History Confirmed 04/02/25] montelukast 10 mg tablet 10 mg PO HS 12/10/24 [History Confirmed 04/02/25] omeprazole 20 mg capsule,delayed release 20 mg PO DAILY 12/10/24 [History Confirmed 04/02/25] semaglutide (weight loss) 1 mg/0.5 mL subcutaneous pen injector (Wegovy) 1 mg subcut QWEEK 12/10/24 [History Confirmed 04/02/25] tezepelumab-ekko 210 mg/1.91 mL (110 mg/mL) subcutaneous pen injector (Tezspire) 210 mg subcut QMONTH 12/10/24 [History Confirmed 04/02/25] acetaminophen 500 mg tablet (Acetaminophen Extra Strength) 1,000 mg (2 x 500 mg) PO Q6H PRN pain #90 tabs 12/11/24 [Rx Confirmed 04/02/25] aspirin 81 mg tablet,delayed release 81 mg PO BID #60 tabs 12/11/24 [Rx Confirmed 04/02/25] doxycycline hyclate 100 mg tablet 100 mg PO BID #14 tabs 12/11/24 [Rx Confirmed 04/02/25] gabapentin 300 mg capsule 300 mg PO .qhs #30 caps 12/11/24 [Rx Confirmed 04/02/25] oxycodone 5 mg tablet 5 mg PO Q6H PRN pain #28 tabs 12/11/24 [Rx Confirmed 04/02/25] sennosides 8.6 mg-docusate sodium 50 mg tablet (Senna-S) 1 tab-cap PO QDAY #30 tabs 12/11/24 [Rx Confirmed 04/02/25] Exam Exam Patient is in no acute distress and is cooperative with the examination today. Patient has a normal mood and affect. Breathing is nonlabored. In no respiratory distress. Bilateral extremities were evaluated and demonstrates sensation intact to light touch. Palpable pedal pulses are present. No significant edema is present. Right hip incisions clean dry intact. She is no pain with logroll Left hip incision is also clean dry intact Right knee demonstrates tenderness palpation medially X-rays demonstrates significant medial joint space narrowing medially with complete obliteration of the medial joint space Assessment and Plan Problem List (1) Status post total hip replacement, right: Status: Acute Plan: Patient is a pleasant 62-year-old female with a right total hip replacement anterolateral approach 24 months ago. She is doing well. She is now status post left total hip replacement and is very happy. (2) Arthritis of knee, right: Status: Acute Plan: Patient is a 64-year-old female with right knee pain and right knee arthritis. We discussed different treatment options. Patient like a cortisone injection of the right knee today. We discussed that she should restart her meloxicam as well for this if her kidney will allow it Recommend knee cortisone injection as patient would like to proceed with conservative treatment at this time. The risks and benefits of the procedure were reviewed with the patient and patient gave verbal consent to continue with the procedure. Procedure: performed by Dr. Alfonso Using sterile technique the Right knee was thoroughly prepped with alcohol, and approximately 1 cc of Depo-Medrol 80mg/mL and 4 cc of 0.2% ropivacaine was injected without resistance into the medial tibial femoral joint space. The patient tolerated the procedure. Office Procedures GNS Level of Care Nursing/Assessment Patient Status: Established Patient Nursing Assessment/Reassesment: Medication Reconciliation, Update PMH in EMR and Vital Signs Coordination of Care: Complex Care and Chronic Disease 1-5, Education Complex Pt/Fam, Consent,records obtained, informed consent, Results/Orders obtained and Staff clarify orders Established Patient Charge Established Patient Point Assignment: 95 Established Patient Point Charge: EP Level 3 (80-115) Surgical Proc/IM SQ injection Minor Surgical Procedure: Yes (KNEE INJECTION) Medication Given Medication Given Medication Given: Yes Documented Dose Given: 1 Route: Infiitration Medication Given Medication Given Medication Given: Yes Documented Dose Given: 4 Route: Infiitration Office Meds methylprednisolone acetate 80 mg/mL suspension for injection Performing Provider: Rajesh Alfonso MD Performing Location: [facility] Administered by: Rajesh Alfonso MD on 04/02/25 13:33 Dose Route Admin Location Dispensed Lot Number Expiration Date Package [facility] ND Septic Tank Cleaner 80 mg intra-articular 1 mL [id number] 12/05/26 [address]-7 [id number] [employer] ropivacaine (PF) 2 mg/mL (0.2 %) injection solution Performing Provider: Rajesh Alfonso MD Performing Location: [facility] Administered by: Rajesh Alfonso MD on 04/02/25 13:33 Dose Route Admin Location Dispensed Lot Number Expiration Date Package [facility] NDC Septic Tank Cleaner 20 mL Infiltration 20 mL [id number] 06/07/27 07275-345-40 [id number] [facility] Int[facility] Visit Data Collection New Patient or Established: Established Patient (seen at [facility] within 3 years) Reason for Visit:: 2 MONTH BILL Seen by Clinical Staff ONLY (RN/MA): No Verbal consent obtained for Telemed visit?: No Vamp Seamer Required: No PCP or OBGYN visit in last 3 months: Yes Hx Now: No Do You Feel Safe at Home: Yes Authorities Contacted: N/A Questionairres Past Medical History Past Medical History Have you ever been diagnosed with any of the following: Neurological Problems Seizures: No Cardiology Problems Congestive Heart Failure: No Hypertension: Yes Respiratory Problems Chronic Obstructive Pulmonary Disease (COPD): No Asthma: Yes Smoking: No Smoking Exposure: No Stomache/Intestinal Problems Hepatitis: No Obesity: Yes Genital/Urinary Problems Renal Disease: No Reproductive Problems Previous Pregnancies: Yes (3) Musculoskeletal Problems Arthritis: Yes Degenerative Disk Disease: Yes Endocrine Problems Diabetes Mellitus Type 1: No Diabetes Mellitus Type 2: No Other Problems Hospitalization: Yes Shingles: No Blood Transfusions: No Anesthesia Reactions: Yes (wakes up earlier then expected) Chicken Pox: Yes Mumps: Yes Cancer: No Surgical History Total Hip Replacement: Yes Subjective Visit Visit for: follow up visit Immunization / Flu Flu Vaccine in the Last 12 Months: No Flu Vaccine Exclusion Criteria: No Exclusion Criteria History of Present Illness Chief complaint: 2 MONTHS BILL Lety is a pleasant 64-year-old female with left hip pain. She is status post right total hip replacement. She is now status post left total hip replacement and is very happy with her progress. She reports right greater than left knee pain. She is here for x-ray results and a cortisone injection Personal History Red flag PMH: BMI BMI Counceling provided: Yes Pain Pain level (0-10): 8 Pain duration: ALL DAY Pain location: groin Pain quality: sharp, dull and aching Pain timing: increases with activity Ambulatory data Ambulatory device: none Treatments Improvement with previous injections: No Improvement with PT: No Improvement with NSAIDS: no Review of Systems Review of Systems: All systems negative unless otherwise noted in HPI.
== END 2025-04-02 13:45 | disposition home or self-care (01) ==
LOC: HODSRG 12:52
PROVIDERS: Supervising Provider Orthopaedic Surgery Adult Reconstructive Orthopaedic Surgery; Visit Provider Orthopaedic Surgery Adult Reconstructive Orthopaedic Surgery
DX: M17.11 Unilateral primary osteoarthritis, right knee (principal); M25.561 Pain in right knee; M25.562 Pain in left knee; M25.552 Pain in left hip; Z96.643 Presence of artificial hip joint, bilateral; I10 Essential (primary) hypertension; E66.9 Obesity, unspecified; Z68.35 Body mass index [BMI] 35.0-35.9, adult
CPT/HCPCS: 20610; 99213; J1010; J2795; G0463